=== PATIENT | male | born 1990 | race Caucasian/White ===

== ENCOUNTER → 2020-05-08 | Emergency (ER) | payer BC ==
[~2020-05-08] MED LIST: Famotidine 20 MG TAB ONE; HYDROcodone/Acetaminophen 5/325 mg Tablet ONE; Ketorolac Tromethamine 30 MG/ML VIAL ONE; hydrOXYzine 25 MG TAB ONE
== END ==
LOC: BURERS 02:57
DX: M79.18 Myalgia, other site (principal); T39.4X5A Adverse effect of antirheumatics, not elsewhere classified, initial encounter
CPT/HCPCS: 96372; 99283; J1885